=== PATIENT | female | born 1990 | race Asian ===

== ENCOUNTER 2016-07-07 00:35 | Inpatient (IN) | payer MEDICAID ==
[~2016-07-07] VITALS: Ht 157.5 cm; Wt 62.0 kg
[2016-07-07] MEDS ORDERED: TERBUTALINE 1 MG/ML INJ SC ONE ×2 (01:30→09:00)
[2016-07-07] MEDS ORDERED: OXYTOCIN 30 UNITS/LR 500 ML IV PRN ×2 (01:30→20:30)
[2016-07-07] MEDS ORDERED: METHYLERGONOVINE 0.2 MG INJ IM PRN ×2 (01:30→20:30)
[2016-07-07] MEDS ORDERED: CARBOPROST 250 MCG INJ IM PRN ×2 (01:30→20:30)
[2016-07-07] MEDS ORDERED: OXYTOCIN 30 UNITS/LR 500 ML IV SCH (01:30)
[2016-07-07] MEDS ORDERED: CEFAZOLIN 2 GM/50 ML (PMX) 50 ML IV SCH (01:30)
[2016-07-07] MEDS ORDERED: MISOPROSTOL 200 MCG TAB PR PRN ×2 (01:30→20:30)
[2016-07-07] MEDS: LACTATED RINGER'S 1,000 ML IV SCH ×3 (01:43→14:01)
[2016-07-07 02:07] LABS: BASOPHILS % 0.5 % (0.0-2.0); EOSINOPHILS # 0.1 10^3/ul (0.0-0.5); HEMATOCRIT 36.4 % (37.0-47.0); HEMOGLOBIN 12.2 g/dl (12.0-16.0); LYMPHOCYTES # 1.8 10^3/ul (0.8-2.9); LYMPHOCYTES % 23.9 % (15.0-51.0); MEAN CORPUSCULAR HEMOGLOBIN 28.8 pg (29.0-33.0); MEAN CORPUSCULAR HGB CONC 33.5 g/dl (32.0-37.0); MEAN CORPUSCULAR VOLUME 85.9 fl (82.0-101.0); MEAN PLATELET VOLUME 7.8 fl (7.4-10.4); MONOCYTE # 0.6 10^3/ul (0.3-0.9); MONOCYTES % 7.9 % (0.0-11.0); NEUTROPHIL # 5.1 10^3/ul (1.6-7.5); NEUTROPHILS % 66.7 % (39.0-77.0); PLATELET COUNT 245 10^3/UL (140-440); RED BLOOD COUNT 4.23 10^6/ul (4.20-5.40); RED CELL DISTRIBUTION WIDTH 13.6 % (11.5-14.5); UNCORRECTED WBC 7.6 10^3/ul (4.8-10.8); WHITE BLOOD COUNT 7.6 10^3/ul (4.8-10.8)
[2016-07-07 02:10] LABS: CONDITION 1
[2016-07-07 02:16] LABS: INR 0.88; PARTIAL THROMBOPLASTIN TIME 26.6 Sec (25.0-35.0); PROTIME 11.9 Sec (12.2-14.2); PT RATIO 0.9
[2016-07-07 02:18] VITALS: Ht 157.5 cm; Wt 62.0 kg
[2016-07-07 02:26] VITALS: BP 110/70; PULSE 104; RESP 18
[2016-07-07 04:23] LABS: BARBITURATES NEGATIVE (NEGATIVE); BENZODIAZEPINES NEGATIVE (NEGATIVE); CANNABINOIDS NEGATIVE (NEGATIVE); COCAINE NEGATIVE (NEGATIVE); OPIATES NEGATIVE (NEGATIVE)
[2016-07-07] MEDS ORDERED: EPINEPHrine 0.1 MG/ML SYG ONE (15:31)
[2016-07-07] MEDS ORDERED: PHENYLephrine (100 MCG/ML) 5ML SYG ONE (15:32)
[2016-07-07] MEDS ORDERED: morphine SULFATE/PF (10 MG/10 ML) INJ ONE (15:32)
[2016-07-07] MEDS ORDERED: FENTAnyl 50 MCG/ML VIAL ONE (15:32)
[2016-07-07] MEDS ORDERED: OXYTOCIN 30 UNITS/LR 500 ML IV ONE (15:50)
[2016-07-07] MEDS ORDERED: ONDANSETRON 4 MG INJ ONE (15:52)
[2016-07-07] MEDS ORDERED: DIPHENHYDRAMINE 50 MG INJ ONE (15:52)
--- NOTE | 2016-07-07 16:44 | HP ---
Date/Time of Note Date/Time of Note DATE: 07/07/16 TIME: 16:31 OB - History Hx of Present Free Text/Dictation 26 years old female admitted to [facility] 35 weeks and 6 days with premature rupture of membrane at midnight started having contractions several hours later with a history of previous being prepared to undergo a repeat is patient has been under the care of the [place] [facility] and her course was not complicated with gestational diabetes or induced hypertension or any other medical or surgical or psychological conditions Denies allergy to any known medication Denies smoking or drinking Presently her contractions are every 3-4 minutes with bloody watery vaginal discharge. Chief Complaint: premature rupture membrane labor contractions Estimated Due Date: Aug 05, 2016 : 3 Para: 2 Care: Limited Care Ultrasounds: Normal mid trimester US Obstetrical Complications: None Medical Complications: None Past Family/Social History * Past Medical, Surgical, Family and Obstetric Histories reviewed from chart. Rubella: immune RPR/VDRL: Negative GBS Status: Unknown HBsAG: Negative OB Admission Exam Vital Signs Vital Signs Vital Signs Date Time Temp Pulse Resp B/P Pulse Ox O2 Delivery O2 Flow Rate FiO2 07/07/16 02:26 98.6 104 18 110/70 Room Air Physical Exam HEENT: WNL Heart: Rhythm Normal Lungs: Clear, Equal Abdomen: WNL Extremities: Normal Reflexes: Normal Cervical Dilatation: Fingertip Effacement: 25% Station: -2 Membranes: Ruptured Amniotic Fluid: Clear Heart Rate: 130's Varibility: Moderate Contractions on Admission: < 5 Minutes Apart Intensity: Moderate Last 72 hours Lab Results CBC & BMP 07/07/16 01:40 DARREL FREEMAN MD Jul 07, 2016 16:42
--- NOTE | 2016-07-07 16:54 | OPPN ---
Date/Time of Note Date/Time of Note DATE: 07/07/16 TIME: 16:51 Operative/Procedure Note 35 weeks 6 days premature rupture of membrane history of previous C- section in labor Pre-Operative Diagnosis Same as the above Post-Operative Diagnosis Same as the above Procedure Repeat Surgeon: DARREL FREEMAN MD Qual Research Manager: YENNY ENAMORADO MD Anesthesiologist: PORTIA NEAL DO Findings Live baby girl 8 and 9 Implants/Grafts: Not applicable Estimated blood loss: other (600 mL) Drains: Not applicable Specimens: Not Applicable Complications: None Anesthesia type: spinal DARREL FREEMAN MD Jul 07, 2016 16:54
--- NOTE | 2016-07-07 17:19 | OPR ---
DATE OF OPERATION: 07/07/2016 PREOPERATIVE DIAGNOSES 1. Intrauterine at 35-weeks-6 days. 2. Premature rupture of membranes, in active labor. 3. History of previous section. POSTOPERATIVE DIAGNOSES 1. Intrauterine at 35-weeks-6 days. 2. Premature rupture of membranes, in active labor. 3. History of previous section. PROCEDURE: Repeat transverse low cervical section. SURGEON: Darrel Freeman MD PHOTOGRAPHY EDITOR: Med Salcido MD ANESTHESIA: Spinal. ANESTHESIOLOGIST: Frankie Salvador DO FINDINGS: Live baby girl with Apgars 8 and 9. DETAILS OF THE PROCEDURE: Under satisfactory spinal anesthesia, the patient was prepped, draped and placed in supine position. Pfannenstiel incision was made. Old scar was removed. Incision lyndsey d through the subcutaneous tissue. Bleeders brought under control with electrocautery. Fascia inci sed to the length of incision. Rectus muscle divided in midline. Peritoneum exposed, entered throu gh a transverse incision. Exploration of abdomen, gravid uterus with normal-appearing tubes and ova liset. Extremely thinned-out lower segment of the uterus, to the thickness of 1 to 2 mm. Bladder fl ap was developed. Transverse incision was made in the lower segment of the uterus. Amniotic sac ru ptured. Clear amniotic fluid noted. Live baby girl was delivered from an unengaged vertex. Nasal oropharyngeal suction was performed. Baby handed to the team for immediate attention. Pat ient received 20 units of Pitocin through the IV infusion. Placenta delivered manually intact. Craig rine cavity cleaned with wet sponge and drainage established. Uterus closed in 2 layers using Monoc ryl #1 in continuous fashion. Peritoneal cavity irrigated with warm saline. Sponge, needle and ins trument reported to be correct. Abdominal peritoneum closed with 2-0 chromic catgut continuously. Rectus muscle approximated with 3 interrupted 2-0 chromic catgut. Fascia closed with #1 PDS in a co ntinuous fashion. Subcutaneous tissue irrigated with warm saline and approximated with a few interr upted 2-0 chromic catgut. Skin closed with jo. Estimated blood loss ____ to 600 mL. Urine b ag contained 200 mL of urine. Patient tolerated procedure well; transferred to recovery room in a g ood condition. Dictated By: DARREL FREEMAN MD HF/NTS Conf#: [id number] DID#: [id number]
[2016-07-07] MEDS ORDERED: DIPHENHYDRAMINE 50 MG INJ IV PRN (17:30)
[2016-07-07] MEDS ORDERED: HYDROmorphONE 1 MG/ML SYG IV PRN ×2 (17:30)
[2016-07-07] MEDS ORDERED: NALOXONE (0.4 MG/ML) INJ IV PRN (17:30)
[2016-07-07] MEDS ORDERED: ONDANSETRON 4 MG INJ IV PRN (17:30)
[2016-07-07] MEDS ORDERED: ZOLPIDEM 5 MG TAB PO PRN (17:30)
--- NOTE | 2016-07-07 17:46 | DELSUM ---
Delivery Summary A-C Datetime Report Generated by CPN: 07/07/2016 17:46 DELIVERY PERSONNEL Microwave Radio Technician: Badgett, Mayra MATERNAL INFORMATION Delivery Anesthesia: Spinal Medications in Delivery: 30 UNITS PITOCIN Placenta Cultured: No Maternal Complications: PROM; Other Other Maternal Complications: PTL, 35.6 WEEKS PPROM 0015 07/07/16 LABOR SUMMARY EDC: 08/05/2016 00:00 No. Babies in Womb: 1 Attempted: No Labor Anesthesia: None LABOR INFORMATION Reason for Induction: Not Applicable Onset of Labor: 07/07/2016 00:00 Oxytocin: N/A Group B Beta Strep: Not Done Group B Beta Strep: Not Done Antibiotics # of Doses: 1 Antibiotics Time of Last Dose: 1345 Steroids Given: None Reason Steroids Not Administered: Not Applicable MEMBRANES Membranes Rupture Method: Spontaneous Rupture of Membranes: 07/07/2016 00:15 Length of Rupture (hr): 15.75 Amniotic Fluid Color: Clear Amniotic Fluid Amount: Moderate Amniotic Fluid Odor: Normal STAGES OF LABOR Stage 3 hr: 0 Stage 3 min: 1 Total Time in Labor hr: 16 Total Time in Labor min: 1 CSECTION DELIVERY Primary Indication: Repeat Elective Secondary Indication: Repeat Elective CSection Urgency: Elective CSection Incidence: Repeat Labor: Labor Elective: Nonelective CSection Incision: Lower Uterine Transverse BABY A INFORMATION Delivery Date/Time: 07/07/2016 16:00 Method of Delivery: Born in Route : No : N/A Forceps: N/A Vacuum Extraction: N/A Shoulder Dystocia : N/A SHOULDER DYSTOCIA BABY A Infant Delivery Date/Time: 07/07/2016 16:00 PRESENTATION/POSITION BABY A Presentation: Breech Cephalic Presentation: Vertex Vertex Position: Left Occipital Anterior Breech Presentation: N/A PLACENTA INFORMATION BABY A Placenta Delivery Time : 07/07/2016 16:01 Placenta Method of Delivery: Manual Removal Placenta Status: Delivered SCORES BABY A Heart Rate 1 min: >100 bpm Resp Effort 1 min: Good Cry Reflex Irritability 1 min: Cough/Sneeze/Pulls Away Muscle Tone 1 min: Active Motion Color 1 min: Blue/Pale Resuscitation Effort 1 min: Tactile Stimulation SCORE 1 MIN: 8 Heart Rate 5 min: >100 bpm Resp Effort 5 min: Good Cry Reflex Irritability 5 min: Cough/Sneeze/Pulls Away Muscle Tone 5 min: Active Motion Color 5 min: Body [place], Extremit Blue Resuscitation Effort 5 min: Tactile Stimulation SCORE 5 MIN: 9 INFORMATION BABY A Gestational Age at Delivery: 35.6 Gestational Status: Late - 34- 36.6 Weeks Outcome : Liveborn Condition : Stable Sex: Male IDENTIFICATION/MEDS BABY A ID Band Number: [id number] ID Band Location: Right Leg; Left Arm Sensor Applied: Yes Sensor Number: [id number] Sensor Location : Cord Clamp Vitamin K Given : Not Given Erythromycin Given: Not Given WEIGHT/LENGTH BABY A Birthweight (gm): 2850 Weight (lb): 6 Weight (oz): 5 Infant Length (in): 18.50 Length (cm): 46.99 CORD INFORMATION BABY A No. Cord Vessels: 3 Nuchal Cord : N/A Cord Blood Taken: Yes Infant Suction: Mouth; Nose ASSESSMENT BABY A Infant Complications: Other Complications- Other: PTL, PROM, GBS UNKNOWN Physical Findings at Delivery: Within Normal Limits Infant Respirations: Nasal Flaring [employer] Manager Architect/ALS Called : No Infant Care By: JAVI/JAN Transferred To: Remains with Mother
[2016-07-07] MEDS: KETOROLAC 30 MG INJ IV PRN (19:26)
--- NOTE | 2016-07-07 20:19 | DELSUM ---
Delivery Summary A-C Datetime Report Generated by CPN: 07/07/2016 20:18 DELIVERY PERSONNEL Pesticide Control Inspector: [place], May MATERNAL INFORMATION Delivery Anesthesia: Spinal Medications in Delivery: 30 UNITS PITOCIN Placenta Cultured: No Maternal Complications: PROM; Other Other Maternal Complications: PTL, 35.6 WEEKS PPROM 0015 07/07/16 LABOR SUMMARY EDC: 08/05/2016 00:00 No. Babies in Womb: 1 Attempted: No Labor Anesthesia: None LABOR INFORMATION Reason for Induction: Not Applicable Onset of Labor: 07/07/2016 00:00 Oxytocin: N/A Group B Beta Strep: Not Done Group B Beta Strep: Not Done Antibiotics # of Doses: 1 Antibiotics Time of Last Dose: 1345 Steroids Given: None Reason Steroids Not Administered: Not Applicable MEMBRANES Membranes Rupture Method: Spontaneous Rupture of Membranes: 07/07/2016 00:15 Length of Rupture (hr): 15.75 Amniotic Fluid Color: Clear Amniotic Fluid Amount: Moderate Amniotic Fluid Odor: Normal STAGES OF LABOR Stage 3 hr: 0 Stage 3 min: 1 Total Time in Labor hr: 16 Total Time in Labor min: 1 CSECTION DELIVERY Primary Indication: Repeat Elective Other Primary Indication: PREV C/S, PPROM Secondary Indication: N/A CSection Urgency: Elective CSection Incidence: Repeat Labor: Labor Elective: Nonelective CSection Incision: Lower Uterine Transverse BABY A INFORMATION Delivery Date/Time: 07/07/2016 16:00 Method of Delivery: Born in Route : No : N/A Forceps: N/A Vacuum Extraction: N/A Shoulder Dystocia : N/A SHOULDER DYSTOCIA BABY A Delivery Date/Time: 07/07/2016 16:00 PRESENTATION/POSITION BABY A Presentation: Breech Cephalic Presentation: Vertex Vertex Position: Left Occipital Anterior Breech Presentation: N/A PLACENTA INFORMATION BABY A Placenta Delivery Time : 07/07/2016 16:01 Placenta Method of Delivery: Manual Removal Placenta Status: Delivered SCORES BABY A Heart Rate 1 min: >100 bpm Resp Effort 1 min: Good Cry Reflex Irritability 1 min: Cough/Sneeze/Pulls Away Muscle Tone 1 min: Active Motion Color 1 min: Blue/Pale Resuscitation Effort 1 min: Tactile Stimulation SCORE 1 MIN: 8 Heart Rate 5 min: >100 bpm Resp Effort 5 min: Good Cry Reflex Irritability 5 min: Cough/Sneeze/Pulls Away Muscle Tone 5 min: Active Motion Color 5 min: Body [place], Extremit Blue Resuscitation Effort 5 min: Tactile Stimulation SCORE 5 MIN: 9 INFANT INFORMATION BABY A Gestational Age at Delivery: 35.6 Gestational Status: Late - 34- 36.6 Weeks Infant Outcome : Liveborn Infant Condition : Stable Infant Sex: Male IDENTIFICATION/MEDS BABY A ID Band Number: [id number] ID Band Location: Right Leg; Left Arm Sensor Applied: Yes Sensor Number: [id number] Sensor Location : Cord Clamp Vitamin K Given : Not Given Erythromycin Given: Not Given WEIGHT/LENGTH BABY A Infant Birthweight (gm): 2850 Weight (lb): 6 Infant Weight (oz): 5 Length (in): 18.50 Infant Length (cm): 46.99 CORD INFORMATION BABY A No. Cord Vessels: 3 Nuchal Cord : N/A Cord Blood Taken: Yes Suction: Mouth; Nose ASSESSMENT BABY A Infant Complications: Other Infant Complications- Other: PTL, PROM, GBS UNKNOWN Physical Findings at Delivery: Within Normal Limits Infant Respirations: Nasal Flaring Manager Psychiatry/ALS Called : No Infant Care By: JAVI/JAN Transferred To: Remains with Mother
[2016-07-07] MEDS ORDERED: OXYCODONE/ACETAMINOPHEN (5/325) TAB PO PRN ×2 (20:30)
[2016-07-07] MEDS ORDERED: ACETAMINOPHEN/CODEINE #3 TAB PO PRN (20:30)
[2016-07-07] MEDS ORDERED: LANOLIN 7 GM TUBE TOP PRN (20:30)
[2016-07-07] MEDS ORDERED: CEFAZOLIN 1 GM/50 ML (PMX) 50 ML IVPB SCH (20:30)
[2016-07-07] MEDS: SENNA/DOCUSATE NA (8.6MG/50MG) TAB PO SCH (21:39)
[2016-07-07] MEDS: OXYTOCIN 30 UNITS/LR 500 ML IV SCH (21:39)
[2016-07-08 04:00] VITALS: BP_SYST 115; BP_SYST 117; BP_DIAS 56; BP_DIAS 57; PULSE 80; PULSE 91; RESP 18
[2016-07-08] MEDS: OXYTOCIN 30 UNITS/LR 500 ML IV SCH ×2 (04:54→09:37)
[2016-07-08] MEDS: KETOROLAC 30 MG INJ IV PRN ×2 (04:54→11:35)
[2016-07-08 08:06] LABS: BASOPHILS % 0.4 % (0.0-2.0); EOSINOPHILS % 0.5 % (0.0-7.0); HEMATOCRIT 29.4 % (37.0-47.0); HEMOGLOBIN 9.9 g/dl (12.0-16.0); LYMPHOCYTES # 1.1 10^3/ul (0.8-2.9); LYMPHOCYTES % 13.1 % (15.0-51.0); MEAN CORPUSCULAR HEMOGLOBIN 28.9 pg (29.0-33.0); MEAN CORPUSCULAR HGB CONC 33.6 g/dl (32.0-37.0); MEAN CORPUSCULAR VOLUME 85.9 fl (82.0-101.0); MEAN PLATELET VOLUME 7.9 fl (7.4-10.4); MONOCYTE # 0.6 10^3/ul (0.3-0.9); MONOCYTES % 7.6 % (0.0-11.0); NEUTROPHIL # 6.6 10^3/ul (1.6-7.5); NEUTROPHILS % 78.4 % (39.0-77.0); PLATELET COUNT 178 10^3/UL (140-440); RED BLOOD COUNT 3.43 10^6/ul (4.20-5.40); RED CELL DISTRIBUTION WIDTH 13.8 % (11.5-14.5); UNCORRECTED WBC 8.4 10^3/ul (4.8-10.8); WHITE BLOOD COUNT 8.4 10^3/ul (4.8-10.8)
[2016-07-08 08:15] VITALS: BP 119/61; PULSE 71; RESP 19
[2016-07-08 08:39] LABS: CONDITION 1
[2016-07-08] MEDS: SENNA/DOCUSATE NA (8.6MG/50MG) TAB PO SCH ×2 (09:37→21:47)
[2016-07-08 11:35] VITALS: BP 112/65; PULSE 70; RESP 18
[2016-07-08] MEDS ORDERED: CEFAZOLIN 1 GM/50 ML (PMX) 50 ML IVPB SCH (12:00)
--- NOTE | 2016-07-08 12:15 | PN ---
Date/Time of Note Date/Time of Note DATE: 07/08/16 TIME: 12:14 OB Subjective Subjective Subjective Post repeat day 1 Vital sign a stable afebrile abdomen soft uterus firm incision dry bowel sound present ambulation recommended Laboratory Tests Test 07/08/16 07:05 Basophils # 0.010^3/ul Basophils % 0.4% Blood Morphology Comment Eosinophils # 0.010^3/ul Eosinophils % 0.5% Hematocrit 29.4% Hemoglobin 9.9g/dl Lymphocytes # 1.110^3/ul Lymphocytes % 13.1% Mean Corpuscular Hemoglobin 28.9pg Mean Corpuscular Hemoglobin Concent 33.6g/dl Mean Corpuscular Volume 85.9fl Mean Platelet Volume 7.9fl Monocytes # 0.610^3/ul Monocytes % 7.6% Neutrophils # 6.610^3/ul Neutrophils % 78.4% Nucleated Red Blood Cells # 0.010^3/ul Nucleated Red Blood Cells % 0.0/100WBC Platelet Count 83945^3/UL Red Blood Count 3.4310^6/ul Red Cell Distribution Width 13.8% White Blood Count 8.410^3/ul Current Medications Medications (Trade) Dose Ordered Sig/Tadeo Route PRN Reason Start Time Stop Time Status Last Admin Dose Admin Lactated Ringer's 1,000 ml @ 125 mls/hr Q8H IV 07/07/16 01:19 07/07/16 20:28 DC 07/07/16 14:01 Cefazolin Sodium/ Dextrose 50 ml @ 100 mls/hr ONCE IV 07/07/16 01:30 07/07/16 20:29 DC Oxytocin/Lactated Ringer's 500 ml @ 125 mls/hr ONCE IV 07/07/16 01:30 07/07/16 20:29 DC 07/07/16 17:29 Oxytocin/Lactated Ringer's 500 ml @ 0 mls/hr ONCE PRN IV For Hemorrhage Management 07/07/16 01:30 07/07/16 20:29 DC Methylergonovine Maleate (Methergine) 0.2 mg ONCE PRN IM VAGINAL BLEEDING 07/07/16 01:30 07/07/16 20:29 DC Carboprost Tromethamine (Hemabate) 250 mcg ONCE PRN IM VAGINAL BLEEDING 07/07/16 01:30 07/07/16 20:29 DC Misoprostol (Cytotec) 1,000 mcg ONCE PRN PA VAGINAL BLEEDING 07/07/16 01:30 07/07/16 20:29 DC Terbutaline Sulfate (Brethine) 0.25 mg ONCE ONCE SC 07/07/16 01:30 07/07/16 01:31 DC 07/07/16 01:55 Terbutaline Sulfate (Brethine) 0.25 mg ONCE ONCE SC 07/07/16 09:00 07/07/16 09:01 DC Epinephrine 1 mg STK-MED ONCE .ROUTE 07/07/16 15:31 07/07/16 15:32 DC Morphine Sulfate (Duramorph) 10 mg STK-MED ONCE .ROUTE 07/07/16 15:32 07/07/16 15:33 DC Fentanyl (Sublimaze) 100 mcg STK-MED ONCE .ROUTE 07/07/16 15:32 07/07/16 15:33 DC Phenylephrine HCl 500 mcg 500 mcg STK-MED ONCE .ROUTE 07/07/16 15:32 07/07/16 15:33 DC Oxytocin/Lactated Ringer's 500 ml @ ud STK-MED ONCE IV 07/07/16 15:50 07/07/16 15:51 DC Ondansetron HCl (Zofran Inj) 4 mg STK-MED ONCE .ROUTE 07/07/16 15:52 07/07/16 15:53 DC Diphenhydramine HCl (Benadryl) 50 mg STK-MED ONCE .ROUTE 07/07/16 15:52 07/07/16 15:53 DC Naloxone HCl (Narcan) 0.1 mg Q2M PRN IV FOR RESP RATE 8 OR LESS 07/07/16 17:30 07/08/16 17:29 Ketorolac Tromethamine (Toradol) 30 mg Q6H PRN IV PAIN 07/07/16 17:30 07/08/16 17:29 07/08/16 11:35 Hydromorphone HCl (Dilaudid) 0.2 mg Q3H PRN IV PAIN LEVEL 1-5 07/07/16 17:30 07/08/16 17:29 Hydromorphone HCl (Dilaudid) 0.4 mg Q3H PRN IV PAIN LEVEL 6-10 07/07/16 17:30 07/08/16 17:29 Diphenhydramine HCl (Benadryl) 25 mg Q6H PRN IV ITCHING 07/07/16 17:30 07/08/16 17:29 Ondansetron HCl (Zofran Inj) 4 mg Q6H PRN IV NAUSEA AND/OR VOMITING 07/07/16 17:30 07/08/16 17:29 Zolpidem Tartrate (Ambien) 5 mg HS MAY REPEAT X 1 PRN PO INSOMNIA 07/07/16 17:30 07/08/16 17:29 Acetaminophen/ Codeine Phosphate (Tylenol No.3) 1 tab Q4H PRN PO PAIN LEVEL 4-6 07/07/16 20:30 Acetaminophen/ Codeine Phosphate (Tylenol No.3) 2 tab Q4H PRN PO PAIN LEVEL 7-10 07/07/16 20:30 Oxycodone/ Acetaminophen (Percocet (5/ 325)) 1 tab Q4H PRN PO PAIN LEVEL 4-6 07/07/16 20:30 Oxycodone/ Acetaminophen (Percocet (5/ 325)) 2 tab Q4H PRN PO PAIN LEVEL 7-10 07/07/16 20:30 Ibuprofen (Motrin) 600 mg Q6 PO 07/08/16 18:00 Simethicone (Mylicon) 160 mg Q8H PRN PO DISTENSION/GAS/BLOATING 07/07/16 20:30 Senna/Docusate Sodium (Senokot-S) 1 tab BID PO 07/07/16 21:00 07/08/16 09:37 Lanolin (Dft-Q-Xrqher) 1 applic BEDSIDE MEDICATION PRN TOP BEDSIDE FOR MURTAZA TO NIPPLES 07/07/16 20:30 07/07/16 21:40 Diphtheria/ Tetanus/Acell Pertussis 0.5 ml 0.5 ml ONCE ONCE IM* 07/10/16 09:00 07/10/16 09:01 Oxytocin/Lactated Ringer's 500 ml @ 0 mls/hr ONCE PRN IV For Hemorrhage Management 07/07/16 20:30 Methylergonovine Maleate (Methergine) 0.2 mg ONCE PRN IM VAGINAL BLEEDING 07/07/16 20:30 Carboprost Tromethamine (Hemabate) 250 mcg ONCE PRN IM VAGINAL BLEEDING 07/07/16 20:30 Misoprostol 1000 mcg 1,000 mcg ONCE PRN PA VAGINAL BLEEDING 07/07/16 20:30 Cefazolin Sodium 50 ml @ 100 mls/hr ONCE IVPB 07/07/16 20:30 07/07/16 20:59 DC Oxytocin/Lactated Ringer's 500 ml @ 125 mls/hr Q4H IV 07/07/16 20:24 07/08/16 09:37 Cefazolin Sodium (Ancef 1 Gm/50 ml (Pmx)) 50 ml @ 100 mls/hr ONCE IVPB 07/08/16 12:00 07/08/16 12:29 DARREL FREEMAN MD Jul 08, 2016 12:15
[2016-07-08] MEDS: LACTATED RINGER'S 1,000 ML IV SCH (14:11)
[2016-07-08 16:00] VITALS: BP 119/62; PULSE 74; RESP 17
[2016-07-08] MEDS: ACETAMINOPHEN/CODEINE #3 TAB PO PRN (16:29)
[2016-07-08] MEDS: IBUPROFEN 600 MG TAB PO SCH (18:05)
[2016-07-08 19:40] VITALS: BP 117/61; PULSE 92; RESP 18
[2016-07-09] MEDS: IBUPROFEN 600 MG TAB PO SCH ×5 (00:19→23:57)
[2016-07-09 04:00] VITALS: BP 115/56; PULSE 91; RESP 18
[2016-07-09 07:45] VITALS: BP 117/68; PULSE 83; RESP 19
[2016-07-09] MEDS: SENNA/DOCUSATE NA (8.6MG/50MG) TAB PO SCH ×2 (10:05→20:54)
--- NOTE | 2016-07-09 13:55 | PN ---
Date/Time of Note Date/Time of Note DATE: 07/09/16 TIME: 13:53 OB Subjective Subjective Subjective Post day 2 Afebrile vital sign stable abdomen soft uterus firm incision dry lochia normal extremity normal bowel sounds present patient had normal bowel movement ambulation recommended plan of discharge a.m. discussed with the patient DARREL FREEMAN MD Jul 09, 2016 13:54
[2016-07-09 16:00] VITALS: BP 124/72; PULSE 87; RESP 18
[2016-07-09] MEDS: ACETAMINOPHEN/CODEINE #3 TAB PO PRN ×2 (16:14→21:06)
[2016-07-09 19:30] VITALS: BP 138/68; PULSE 84; RESP 19
[2016-07-10 04:00] VITALS: BP 119/72; PULSE 80; RESP 19
[2016-07-10] MEDS: IBUPROFEN 600 MG TAB PO SCH ×2 (05:50→12:29)
[2016-07-10 08:20] VITALS: BP 121/76; PULSE 73; RESP 16
[2016-07-10] MEDS: SENNA/DOCUSATE NA (8.6MG/50MG) TAB PO SCH (08:58)
[2016-07-10] MEDS ORDERED: DIPHTH/TET/ACEL PERTUSS (ADULT) 0.5 ML VIAL IM* ONE (09:00)
--- NOTE | 2016-07-10 14:55 | DS ---
Date/Time of Note Date/Time of Note DATE: 07/10/16 TIME: 14:53 Obstetrical Discharge Record Final Diagnosis Final Diagnosis: Term delivered Section Section: Repeat Condition on Discharge Physical Assessment Last Vitals: Vital sign a stable afebrile abdomen soft incision healing well bowel sound present patient had normal bowel movement uterus firm extremity normal she is being discharged with home instructions to be seen at the clinic for removal of jo in 4 days Voiding: Yes Bowel Movement: Yes Breast: Soft, non-tender, Filling Fundus: Firm Abdomen and Incision: Healing well dry and clean Calf Tenderness: No Patient Condition: Good DARREL FREEMAN MD Jul 10, 2016 14:55
== END 2016-07-10 16:45 | disposition home or self-care (01) | DRG 765 ==
LOC: L-D 00:35 → OBT 00:35 → L-D 01:15 → OBT 01:15 → L-D 15:28 → PP1 20:42
PROVIDERS: ADMIT Obstetrics & Gynecology; ATTEND Obstetrics & Gynecology
PROC: 10D00Z1 Extraction of Products of Conception, Low, Open Approach (ICD-10-PCS; principal; 2016-07-07 16:30)
PROC: 3E00X4Z Introduction of Serum, Toxoid and Vaccine into Skin and Mucous Membranes, External Approach (ICD-10-PCS; 2016-07-10)
DX: O34.211 Maternal care for low transverse scar from previous cesarean delivery (principal); O60.14X0 Preterm labor third trimester with preterm delivery third trimester, not applicable or unspecified; Z23 Encounter for immunization; Z3A.35 35 weeks gestation of pregnancy; Z37.0 Single live birth
CPT/HCPCS: 84112; 85025; 85610; 85730; 86592; 86703; 86850; 86900; 86901; 87340; 90715; 94760; 99464; G0463; G0479; J0171; J0690; J1200; J1885; J2274; J2370; J2405; J2590; J3010; J3105; J7120